=== PATIENT | male | born 1985 | race Caucasian/White ===

== ENCOUNTER → 2018-03-13 09:33 | Outpatient (CLI) | payer BC, SELFPAY ==
[2018-03-06 11:19] VITALS: BMI 24.3
--- NOTE | 2018-03-13 09:36 | RAD_ITS ---
STUDY: X-RAY - LEFT WRIST REASON FOR EXAM: Male, 33 years old. Left wrist fracture TECHNIQUE: 3 view(s) of the wrist were obtained. COMPARISON: No previous studies are available for comparison. FINDINGS: Osseous details partially obscured by cast material. There is a nondisplaced fracture of the distal radial metaphysis. The remaining osseous structures and articular surfaces of the left wrist appear within normal limits. RAD/Wrist min 3 Views IMPRESSION: Limited visualization of osseous structure. There appears to be a nondisplaced transverse fracture of the distal radial metaphysis. No significant callus or periosteal new bone formation is evident on these images. Electronically Signed: Bharathi Davis MD at 22:10 EST , Service support ,
--- OUTSIDE RECORDS SUMMARY | 2018-05-06 13:52 | XMS RPT_ITS ---
:1985 Author Organization [facility] Care Team Providers Name Role Phone Josh Monahan Attending Unavailable Corrie Jimenez Referring Unavailable Hero, Josh Attending Unavailable Hero, Josh Referring Unavailable Jimenez, Corrie Primary Care Unavailable Wayadriana, Josh Attending Unavailable Jimenez, Corrie Referring Unavailable Wayt, oJsh Attending Unavailable Jimenez, Corrie Referring Unavailable Wayt, Josh Attending Unavailable Wayt, Josh Referring Unavailable Jimenez, Corrie Primary Care Unavailable PROBLEMS PROBLEMS DATE TYPE CONDITION / CODE ATTENDING STATUS SOURCE 03/21/2018 Unknown M25.532 - Pain in Hero Josh Angulo left wrist / [facility] M25.532(ICD-10) Hospital Repository 03/13/2018 Unknown S62.102A - Josh Monahan Active [place] [facility] carpal bone, left Repository wrist, initial encounter for closed fracture / S62.102A(ICD-10) PROCEDURES PROCEDURES No Procedure Records FoundRESULTS RESULTS ORTHOPEDIC VISIT Observed: 03/29/2018 Status: F Source: [place] REPORT 9:05 AM [facility] REPOSITORY [facility] Orthopaedics AND Sports Medicine [address] [place] [address] [address] [place] [address] OFFICE VISIT Date of Service: 03/21/18 MR#: [id number] Acct: [id number] Name: YUEMAYRA Hsu Rep #: [id number] : 1985 Provider: KEISHA Monahan Age/Sex: 33/M [place] [facility] [place] [place] Status: Signed Intake Intake Visit Reasons: left wrist HPI left wrist: Details: MAYRA TURNER is a 33 year old M here today for followup from left wrist fracture. Patient is currently in a cast. Patient states he is not having any pain. He did trim the cast around his thumb area which left some rough edges. Patient had xray today. Ortho Exam Right Wrist/Hand Skin/Wound: No Swelling, No Ecchymosis Left Wrist/Hand Skin/Wound: No Swelling, No Ecchymosis Left Wrist: No ROM-Extension 0-60 or No ROM-Flexion 0-80 WRIST: Patient presents today still in a short arm cast that is clean, dry, and intact without any breakdown. There is evidence where he did cut around the thumb to allow for some more space. This did not seem to affect the integrity of the cast. There is no skin breakdown on the distal or proximal ends of the cast. He has normal sensation of the fingers and normal movement of the fingers. Assessment AND Plan Problems 1. Closed fracture of distal ends of right radius and ulna with routine healing, subsequent encounter S52.501D; S52.601D Plan Obtained Xrays of patient's right wrist. Personally reviewed Xrays. There is an evident healing fracture of the distal radius with some callus formation and no change in alignment (near anatiomic.). There is no dislocation, or lucency noted. See chart for further details. Patient is still in a cast that is clean, dry, and intact without breakdown. He has normal sensation and movement of the fingers. There is no skin abrasion or breakdown on the distal proximal portion of the cast. At this time patient is to remain in the cast and will recheck in 3 weeks. At that time we will likely remove the cast to get x-rays as well as callus is noted place him in a cockup wrist splint to begin some physical therapy to regain strength and motion. Orders Orders: Plan Detail Follow Up 3 Weeks Coding Level of Care Code Off vis,est,level 2 Diagnoses Closed fracture of distal ends of right radius and ulna with routine healing, subsequent encounter S52.501D; S52.601D Encounter type: subsequent encounter Fracture type: closed Fracture healing: with routine healing 03/29/18904 <Electronically signed by Josh Wayt PA> Date Josh VALDES Cosigner Signature: Date (if applicable) CC: WRIST MIN 3 VIEWS Observed: 03/21/2018 Status: F Source: [place] 2:07 PM [facility] REPOSITORY [facility] Imaging Services [address] [place] [address] Wrist min 3 Views MR#: [id number] Acct: [id number] Name: MAYRA TURNER Rep #: [id number] : 1985 M 33 From: Josh Faust MD PCP: Corrie Jimenez MD Status: REG CLI Study: Wrist min 3 Views Date of Exam: 03/21/18 Exam# [id number] Ordering Dr: Josh Monahan Clinical statement: Left wrist fracture COMPARISON: 03/13/2018 FINDINGS: XR Wrist Min 3 Views: 3 views of the left wrist obtained through a fiberglass cast. The cast obscures fine detail. Redemonstration of an impacted, essentially nondisplaced fracture of the distal left radius. The fracture fragments appear unchanged in position and alignment. On the AP and oblique views, the distal radial metaphysis shows subtle sclerosis and increasing density compatible with healing fracture callus. RAD/Wrist min 3 Views IMPRESSION: Casted, healing fracture of the distal left radius. No complication seen. at 0148 Reported and signed by: Josh Faust MD Electronically Signed: Josh Faust, at 1:46 EST Tel , Service support , CC: KEISHA Monahan; Corrie Jimenez MD Restaurant And Bar Manager: Signed ORTHOPEDIC VISIT Observed: 03/14/2018 Status: F Source: [place] REPORT 12:38 PM [facility] REPOSITORY [facility] Orthopaedics AND Sports Medicine [address] [facility] [address] [place] [address] OFFICE VISIT Date of Service: 03/13/18 MR#: [id number] Acct: [id number] Name: MAYRA TURNER Rep #: [id number] : 1985 Provider: KEISHA Monahan Age/Sex: 33/M Location[place] [facility] [place] [place] Status: Signed Intake Intake Visit Reasons: F/U 1 week L arm HPI F/U 1 week L arm: Details: MAYRA TURNER is a 33 year old M here today for left wrist fracture f/u. His short arm cast is in good condition though he can move the wrist inside due to swelling reduction in the last week. Denies numbness, tingling or other associated symptoms. ROS Musc Denies joint pain, Denies joint swelling, Reports limited joint movement (patient is casted) Ortho Exam Right Wrist/Hand Skin/Wound: No Swelling, No Ecchymosis Left Wrist/Hand Skin/Wound: No Swelling, No Ecchymosis Left Wrist: No ROM-Extension 0-60, No ROM-Flexion 0-80, No TTP Fracture site or No ROM-Pronation 0-80 WRIST: This patient presents in a short arm cast. Cast is clean and dry and intact without any breakdown. He has no skin changes on the distal proximal end of the cast. The cast today is actually pretty loose as he has had a lot of decrease in swelling of the wrist. He has normal movement and sensation of the fingers in the cast. Assessment AND Plan Problems 1. Closed fracture of distal ends of right radius and ulna with routine healing, subsequent encounter S52.181D; S52.673Q Plan Obtained Xrays of patient's left wrist. Personally reviewed Xrays. There is still an evident fracture within the distal radius without any evident change in alignment or position from previous x-rays. There is no dislocation, or lucency noted. See chart for further details. Patient had a lot of swelling that has gone down and therefore the cast today is pretty loose in office and therefore we are going to reapply a short arm cast for more snug fit. Recommend re-x-ray in 1 week. He is to notify of any worsening pains underneath the cast, any skin breakdown on either end of the cast, or any numbness or tingling in the fingers. Orders Orders: Plan Detail Follow Up 1 Week Coding Level of Care Code Off vis,est,level 2 Diagnoses Closed fracture of distal ends of right radius and ulna with routine healing, subsequent encounter S52.501D; S52.607F Encounter type: subsequent encounter Fracture type: closed Fracture healing: with routine healing 03/14/18 1238 <Electronically signed by Josh VALDES> Date Josh VALDES Cosigner Signature: Date (if applicable) CC: WRIST MIN 3 VIEWS Observed: 03/13/2018 Status: F Source: [place] 9:36 AM [facility] REPOSITORY [facility] Imaging Services [address] [place] [address] Wrist min 3 Views MR#: [id number] Acct: [id number] Name: MAYRA TURNER Aracelis Rep #: [id number] : 1985 33 From: Bharathi Davis MD PCP: Corrie Jimenez MD Status: REG CLI Study: Wrist min 3 Views Date of Exam: 03/13/18 Exam# [id number] Ordering Dr: Josh Monahan STUDY: X-RAY - LEFT WRIST REASON FOR EXAM: Male, 33 years old. Left wrist fracture TECHNIQUE: 3 view(s) of the wrist were obtained. COMPARISON: No previous studies are available for comparison. FINDINGS: Osseous details partially obscured by cast material. There is a nondisplaced fracture of the distal radial metaphysis. The remaining osseous structures and articular surfaces of the left wrist appear within normal limits. RAD/Wrist min 3 Views IMPRESSION: Limited visualization of osseous structure. There appears to be a nondisplaced transverse fracture of the distal radial metaphysis. No significant callus or periosteal new bone formation is evident on these images. Electronically Signed: Bharathi Davis MD at 22:10 EST , Service support , CC: KEISHA Monahan; Corrie Jimenez MD Restaurant And Bar Manager: Signed ORTHOPEDIC VISIT Observed: 03/06/2018 Status: F Source: [place] REPORT 12:48 PM [facility] REPOSITORY [facility] Orthopaedics AND Sports Medicine [address] [place] [address] OFFICE VISIT Date of Service: 03/06/18 MR#: [id number] Acct: [id number] Name: MAYRA TURNER Rep #: [id number] : 1985 Provider: KEISHA Monahan Age/Sex: 33/M Location[place] [facility] [place] Status: Signed Intake Vital Signs03/06/18 Height 5 ft 8 in 03/06/18 Weight: 160 lb 03/06/18 Body Mass Index (BMI) 24.3 Intake Visit Reasons: left wrist Is patient in pain?: Yes Pain scale (1-10): 7 HPI left wrist: Details: MAYRA TURNER is a 33 year old M here today for a fractured left wrist from a fall while hiking last week in [place]. He presents in a splint from the ED and has his xray on a disc. He also bruised his chest and states he had a negative CT scan in [place]. Today his fingers are very swollen with limited rom and he states he has been removing the splint daily. Denies numbness, tingling or other associated symptoms. ROS Musc Reports limited joint movement, Reports joint pain, Reports joint swelling, Reports stiffness, Reports as per HPI Ortho Exam Right Wrist/Hand Skin/Wound: Yes Swelling, Yes Ecchymosis Contralateral Normal: Yes Right Wrist: Yes TTP Fracture site; no ROM-Flexion 0-80, ROM- Pronation 0-80, ROM-Supination 0-90 or Snuffbox tenderness Sensation: Radial: I, Ulnar: I, Median: I Left Wrist/Hand Skin/Wound: Yes Swelling, Yes Ecchymosis Assessment AND Plan Problems 1. Closed fracture of distal ends of right radius and ulna, initial encounter S52.501A; S52.601A Plan Today we reviewed patient's x-rays that he had taken in [place]. X-rays show a right extra-articular distal radius fracture with near anatomic alignment. There is also noted a very small avulsion fracture of the distal ulna. In the office today patient has evident generalized swelling of the fingers at the same time has normal sensation and full motion of the fingers. He has some mild ecchymosis changes on the wrist area at the same time swelling here is minimal. He does have tenderness on the distal radius primarily. Very minimal tenderness on the distal ulna. We discussed the anatomy of the wrist as well as the pathophysiology of his injury. We did discuss treatment options as well. Patient states that surgery is not an option as he is not going to proceed with any surgical treatment. We discussed conservative management with casting/immobilization which she would like to go ahead and do. I discussed long-arm versus short arm casting at same time patient states that he will not have a long-arm cast stating if he does he will cut it off anyway. So after these discussions we will go ahead with cast immobilization utilizing a short arm cast. We do need to recheck this in 1 week for any movement. 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 Patient is to really try to elevate the hand and wrist and really do some finger pumps to work out some the swelling. Patient is to notify us of any worsening pains underneath the cast. Otherwise we will recheck in 1 week Plan Detail Follow Up 1 Week Coding Level of Care Code Off vis,new,level 3 Diagnoses Closed fracture of distal ends of right radius and ulna, initial encounter S52.501A; S52.601A Encounter type: initial encounter Fracture type: closed 03/06/18 1248 <Electronically signed by Josh VALDES> Date Josh VALDES Cosigner Signature: Date (if applicable) CC: ALLERGIES ALLERGIES No Allergies Records FoundENCOUNTERS ENCOUNTERS ADMIT/DISCHARGE ACCOUNT ADMITTING ENCOUNTER LOCATION SOURCE NUMBER CLASS 03/21/2018 [id number] Ambulatory [place] 3 [facility] ing:HPRAD Repository 03/21/2018/ [id number] Ambulatory BMSBuilding:B [place] [facility] 3 [facility] Repository 03/13/2018 [id number] Ambulatory [place] 1 [facility] ing:HPRAD Repository 03/13/2018/ [id number] Ambulatory BMSBuilding:B [place] 8 3 [facility] Repository 03/06/2018/ [id number] Ambulatory BMSBuilding:B [place] 8 6 [facility] Repository PAYERS PAYERS ENCOUNTER GUARANTOR PAYER SUBSCRIBER SOURCE 03/21/2018 MAYRA Hsu Primary MAYRA P [place] [id number] W Insurance:ANTHEMPolic HOLDERBAUMDOB: [facility] y Number: [id number] [facility] [id number] Repository [place], [place] Date:9050-25-77NL [address] [address]Hej: [phone], [place] [phone] ( 98777PS: 03/21/2018 Secondary NOT GIVENUNK [place] Insurance:SELF PAY [facility] Number: Effective Repository Date:2018-03-21 03/21/2018 MAYRA Hsu Primary MAYRA Hsu [place] [id number] W Insurance:ANTHEMPolic HOLDERBAUMB: [facility] y Number: [id number] [facility] [id number] Repository [place], [place] Date:1938-98-36JU [address] [address]Pyz: [phone], [place] [phone] ( [id number]: 03/21/2018 Secondary NOT GIVENUNK [place] Insurance:SELF PAY [facility] Number: Effective Repository Date:2018-03-20 03/13/2018 MAYRA P Primary MAYRA P [place] [id number] W Insurance:ANTHEMPolic HOLDERBAUMDOB: [facility] y Number: [id number] [facility] [id number] [place]ository [place] Date:4830-63-89GH [address] [address]Lxt: [phone] SPRINGS, [place] [phone] () 85601OO: 03/13/2018 Secondary NOT GIVENUNK [place] Insurance:SELF PAY [facility] Number: Effective Repository Date:2018-03-13 03/13/2018 MAYRA P Primary MAYRA P [place] [id number] W Insurance:ANTHEMPolic HOLDERBAUMDOB: [facility] y Number: [id number] [facility] [id number] Repository [place] Date:6500-38-01LV [address] [address]Mwk: [phone], [place] [phone] () 81874YB: 03/13/2018 Secondary NOT GIVENUNK [place] Insurance:SELF PAY [facility] Number: Effective Repository Date:2018-03-13 03/06/2018 MAYRA P Primary MAYRA Hsu [place] [id number] W Insurance:ANTHEMPolic HOLDERBAUMDOB: [facility] y Number: [id number] [facility] [id number] Repository [place] Date:4229-21-96NR [address] [address]Lwc: [phone], [place] [phone] () 36492AN: 03/06/2018 Secondary NOT GIVENUNK [place] Insurance:SELF PAY [facility] Number: Effective Repository Date:2018-03-06
== END ==
PROVIDERS: Family Provider Pediatrics; PCP Pediatrics; Referring Provider Physician Assistant; Visit Provider Physician Assistant
DX: S62.102A Fracture of unspecified carpal bone, left wrist, initial encounter for closed fracture (principal)
CPT/HCPCS: 73110

== ENCOUNTER → 2018-03-21 14:05 | Outpatient (CLI) | payer BC, SELFPAY ==
[2018-03-06 11:19] VITALS: BMI 24.3
--- NOTE | 2018-03-21 14:07 | RAD_ITS ---
Clinical statement: Left wrist fracture COMPARISON: 03/13/2018 FINDINGS: XR Wrist Min 3 Views: 3 views of the left wrist obtained through a fiberglass cast. The cast obscures fine detail. Redemonstration of an impacted, essentially nondisplaced fracture of the distal left radius. The fracture fragments appear unchanged in position and alignment. On the AP and oblique views, the distal radial metaphysis shows subtle sclerosis and increasing density compatible with healing fracture callus. RAD/Wrist min 3 Views IMPRESSION: Casted, healing fracture of the distal left radius. No complication seen. at 0148 Reported and signed by: Josh Faust MD Electronically Signed: Josh Faust, at 1:46 EST Tel , Service support ,
--- OUTSIDE RECORDS SUMMARY | 2018-05-07 19:06 | XMS RPT_ITS ---
:1985 Author Organization OHIP Care Team Providers Name Role Phone Josh Monahan Attending Unavailable Jimenez, Corrie Referring Unavailable Wayt, Josh Attending Unavailable Wayt, Josh Referring Unavailable Jimenez, Corrie Primary Care Unavailable Wayt, Josh Attending Unavailable Jimenez, Corrie Referring Unavailable Wayt, Josh Attending Unavailable Wayt, Josh Referring Unavailable Jimenez, Corrie Primary Care Unavailable Wayt, Josh Attending Unavailable Wayt, Josh Referring Unavailable Primay Care Physicia, No Primary Care Unavailable Wayt, Josh Attending Unavailable Primay Care Physicia, No Referring Unavailable Wayt, Josh Attending Unavailable Jimenez, Corrie Referring Unavailable Wayt, Josh Attending Unavailable Jimenez, Corrie Referring Unavailable Wayt, Josh Attending Unavailable Wayt, Josh Referring Unavailable Jimenez, Corrie Primary Care Unavailable PROBLEMS PROBLEMS DATE TYPE CONDITION / CODE ATTENDING STATUS SOURCE 04/24/2018 Unknown S52.501A - Josh Monahan Active [place] [facility] fracture of the Hospital lower end of Repository right radius, initial encounter for closed fracture / S52.501A(ICD-10) 04/24/2018 Unknown S52.601A - Josh Monahan Unspecified Community fracture of lower Hospital end of right Repository ulna, initial encounter for closed fracture / S52.601A(ICD-10) 03/21/2018 Unknown M25.532 - Pain in Josh Monahan left wrist / Community M25.532(ICD-10) Hospital Repository 03/13/2018 Unknown S62.102A - Josh Monahan Active [place] Fracture of Community unspecified Hospital carpal bone, left Repository wrist, initial encounter for closed fracture / S62.102A(ICD-10) PROCEDURES PROCEDURES No Procedure Records FoundRESULTS RESULTS ORTHOPEDIC VISIT Observed: 05/01/2018 Status: F Source: [place] REPORT 4:17 PM [facility] REPOSITORY [facility] Orthopaedics AND Sports Medicine [address] [place] [address] OFFICE VISIT Date of Service: 05/01/18 MR#: [id number] Acct: [id number] Name: MAYRA TURNER Rep #: [id number] : 1985 Provider: KEISHA Monahan Age/Sex: 33/M [place] [facility] [place]: Signed Intake Intake Visit Reasons: LEFT WRIST Is patient in pain?: No Allergies No Known Allergies Allergy (Verified 05/01/18 15:02) HPI LEFT WRIST: Details: MAYRA TURNER is a 33 year old M here today for a followup on his left wrist following cast removal. Patient is doing well and denies any pain. He has some wrist stiffness but feels it is improving. He has a wrist brace that he states he wears sometimes, although he does not have it on for his appointment today. Denies numbness, tingling or other associated symptoms. ROS Const Reports system reviewed and no additional complaints, except as docu Eyes Reports system reviewed and no additional complaints, except as docu ENT Reports system reviewed and no additional complaints, except as docu Card Reports system reviewed and no additional complaints, except as docu Resp Reports system reviewed and no additional complaints, except as docu GI Reports system reviewed and no additional complaints, except as docu Reports system reviewed and no additional complaints, except as docu Musc Reports stiffness Skin/Breast Reports system reviewed and no additional complaints, except as docu Neuro Yes system reviewed and no additional complaints, except as docu Psych Reports system reviewed and no additional complaints, except as docu Endo Reports system reviewed and no additional complaints, except as docu Ortho Exam Right Wrist/Hand Skin/Wound: No Ecchymosis, No Swelling Left Wrist/Hand Skin/Wound: Yes healed, No Ecchymosis, No Swelling Left Wrist: Yes ROM-Pronation 0-80 and Yes ROM-Supination 0-90; no ROM-Flexion 0-80 (70), no ROM-Extension 0-60 (50), no Durken's Test, no TTP Fracture site or no Snuffbox tenderness Sensation: Radial: I, Ulnar: I, Median: I WRIST: Today in the office patient shows very minimal generalized swelling at the distal radius. His range of motion has increased dramatically and he lacks maybe 10 degrees of flexion and extension only. He has no tenderness on palpation of the fracture site and he does not have any tenderness with range of motion with or without resistance. He actually has very good strength against resistance not quite 5 out of 5 but probably 4+ out of 5. Patient has normal sensation throughout the hand. Assessment AND Plan Problems 1. Closed fracture of distal ends of right radius and ulna with routine healing, subsequent encounter S52.501D; S52.453J Plan At this point patient returns the office for range of motion and strength check. He states since he has had the cast off in the past week he has been doing everything he is wanted to do without hesitation or pains. He said he has been chopping wood and doing lots of cleaning without problems. He has been driving normally stating he feels strong secure without any weakness or pains maneuvering the steering wheel. Today in the office patient was very minor swelling of the left wrist compared to the right. His range of motion shows maybe 10 degrees decrease of flexion or extension is very close to being full. His strength is also coming back great. At this point in time patient really wants to return to work without restrictions. I do have some hesitations with heavy lifting or any type of pushing or pulling heavy weights. 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 He is only able to return without restrictions and I am okay with him returning as long as the above is true. I told him I do not want him lifting anything over 15-20 pounds at this point I do not want him hanging from the wrists and I do not want him pulling or pushing over 15-20 pounds. 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 I do plan on seeing patient back in 3-4 weeks to make sure he is fully recovered and will take 1 more x-ray at that time. He can return sooner with any new injuries, increasing swelling, increasing pain or any other signs or symptoms. This note was generated with MyCareation software. It may contain incorrect words, spelling, and punctuation that were not noted in checking the note before signing. Coding Level of Care Code Off vis,est,level 2 Diagnoses Closed fracture of distal ends of right radius and ulna with routine healing, subsequent encounter S52.501D; S52.601D Encounter type: subsequent encounter Fracture type: closed Fracture healing: with routine healing 05/01/18 1617 <Electronically signed by Josh VALDES> Date Josh VALDES Cosigner Signature: Date (if applicable) CC: OT GENERAL EVALUATION Observed: 04/25/2018 Status: F Source: [place] 2:41 PM [facility] REPOSITORY [facility] Occupational Therapy [facility] [address] [place] [address]. [address] [place] [address] / REHABILITATION SERVICES INITIAL EVALUATION MR#: [id number] Acct: [id number] Name: MAYRA TURNER Rep #: [id number] : 1985 33 From: Aleena MALDONADO, LUCRETIA Referring Dr.: KEISHA Monahan Status: REG RCR Insurance: ANTHEM Eval Date: SELF PAY INSURANCE Patient's Visit Information MAYRA TURNER is a 33 year old M, referred to Occupational Therapy by KEISHA Culp, with a diagnosis of left distal radius fracture. Date of Evaluation: 04/25/18 Occupational Therapist: Aleena Hatch, MARCIAL/Mariya, BRANDIET - Subjective Subjective: This 33 year old male was seen for intial OT eval with dx of left distal radius fracture. pt states he suffered a fall and on was casted. He initially did not think his wrist was broken- He was casted 6 weeks and would like to return to PLOF- He reports pain and limited ROM is most bothersome. - Pain left 5 Pain Intensity Range: 3, 5 - ROM Forearm: right 80 left 60 supination Wrist: right 60/70 left 20/15 - Strength Filament Tester: right 130# left 45# Lateral Pinch: right 26# left 22# Tripod Pinch: right 20# left 20# - Sensation Sensation Comments: denies - Quick DASH-Disab of Arm,Shoulder AND Hand Quick DASH Score: 58.3325 - Goals Goal:: PT will demo an increase in leather splitter strength by 20# to increase independent with basic occupations of daily living to return pt to PLOF by D/C. Goal:: Pt will demo an increase in wrist ROM equal to unaffected wrist to return pt to PLOF with grooming, dressing and home mtg tasks by D/C. Goal:: Pt will report pain no greater than 1/10 with use of affected hand with BADLs and IADLs by d/c. Goal:: Pt will report ind. With BADLS and IADLs with no compensation or pain by dc - Rehabilitation General Assessment: Pt 6 weeks immobilazation following left distal radius fx. Pt demo limited left wrist ROM and weak left leather splitter and pinch strength limiting pts ind.with BADLs and IADLs. PT would benefit from skilled OT services 2-3x week for 4 weeks for therapist to provide PRE. This visitPt was ed, on PROM of wrist flex/ext and given handouts on HEP- once pt has gained more wrist ROM therapy will progress pt to PRE to return him to PLOF with BADLs and IADLS. Rehabilitation Potential: Good - Anticipated Interventions Anticipated Interventions: A/AAROM/PROM, Strengthening, Triggerpoint Release, Modalities, Orthoses - Visit Plan Frequency: 2-3x /Week Duration: 4 Weeks General Plan: initiate BTE TEXT: Thank you for the opportunity to evaluate your patient. For Medicare and Medicare HMO plans, please review the plan of care and approve it. It will need to be FAXED BACK to us at [phone] for Medicare purposes. Please let me know if there are questions or concerns regarding this plan of care. Physician Signature: Date: <Electronically signed by Aleena MALDONADO CHT> 04/25/18 1441 CC: No Primary Care Physician; KEISHA Monahan MK Signed For Medicare only, by signing this I certify the plan of care. Physicians Signature Date ORTHOPEDIC VISIT Observed: 04/24/2018 Status: F Source: [place] REPORT 4:29 PM [facility] REPOSITORY [facility] Orthopaedics AND Sports Medicine [address] [place] [address] OFFICE VISIT Date of Service: 04/24/18 MR#: [id number] Acct: [id number] Name: MAYRA TURNER Rep #: [id number] : 1985 Provider: KEISHA Monahan Age/Sex: 33/M [place] [facility] [place]: Signed Intake Vital Signs04/24/18 Body Mass Index (BMI) 24.3 Intake Visit Reasons: LEFT WRIST Is patient in pain?: No Allergies No Known Allergies Allergy (Unverified 04/24/18 15:19) HPI LEFT WRIST: Details: MAYRA TURNER is a 33 year old M here today for a followup on his left wrist. He states that he has no pain currently. Patients short arm cast is clean, dry and intact. Denies numbness, tingling or other associated symptoms. He is able to move his fingers with no pain. ROS Const Reports system reviewed and no additional complaints, except as docu Eyes Reports system reviewed and no additional complaints, except as docu ENT Reports system reviewed and no additional complaints, except as docu Card Reports system reviewed and no additional complaints, except as docu Resp Reports system reviewed and no additional complaints, except as docu GI Reports system reviewed and no additional complaints, except as docu Reports system reviewed and no additional complaints, except as docu Skin/Breast Reports system reviewed and no additional complaints, except as docu Neuro Yes system reviewed and no additional complaints, except as docu Psych Reports system reviewed and no additional complaints, except as docu Endo Reports system reviewed and no additional complaints, except as docu Ortho Exam Right Wrist/Hand Skin/Wound: No Ecchymosis, No Swelling Left Wrist/Hand Skin/Wound: No Ecchymosis, No Swelling Contralateral Normal: Yes Left Wrist: No ROM-Extension 0-60, No ROM-Flexion 0-80 or No TTP Fracture site Sensation: Radial: I, Ulnar: I, Median: I WRIST: At this time patient presents to the office in his short arm cast. Once the cast remove there is evidence sloughing of skin which is to be expected at the smae time there is no skin breakdown / open areas. There is no tenderness on palpation of the distal radius or the distal ulna at this time. He does have some decreased range, stiffness, and some discomfort with movement due to immobilization. Assessment AND Plan Problems 1. Closed fracture of distal ends of right radius and ulna with routine healing, subsequent encounter S52.501D; S52.602X Plan Obtained Xrays of patient's left wrist. Personally reviewed Xrays. There is evidence of healing fracture of the distal radius with avulsion of the distal ulna. There is no dislocation, or lucency noted. See chart for further details. At this time patient has a healing distal radius and ulna fracture post 6 weeks of immobilization. At this time patient does have evidence of healing on x-ray and he has no tenderness on palpation of the fracture site. There is evidence stiffness due to immobilization which is to be expected. At this time patient was given a prescription for occupational therapy make sure and regain full range of motion and strength of the wrist. I would like him to wear a cockup wrist splint for the next 1-2 weeks for added support and safety while he works on his range of motion and strength. He continued ice and take anti-inflammatory as needed for inflammation and pain. At this time patient states he would really like to return to work next week. 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 I did discuss that I want to make sure that patient does have his motion almost fully back and has strength enough to feel like he is able to leather splitter and hold a we will securely and do it in a quick or rapid motion. Patient understands my concern and is going to take his occupational therapy prescription down soon as he leaves our office. I would like him to return to the office in 4-6 weeks just for range of motion and strength check. Return sooner if he has any increasing pains, increased swelling or any injury. I did explain that he is at increased risk for reinjury of the wrist with a sudden or direct fall or injury to. This note was generated with UserMojo dictation software. It may contain incorrect words, spelling, and punctuation that were not noted in checking the note before signing. Orders Orders: Plan Detail Follow Up 4 Weeks Coding Level of Care Code Off vis,est,level 2 Diagnoses Closed fracture of distal ends of right radius and ulna with routine healing, subsequent encounter S52.501D; S52.601D Encounter type: subsequent encounter Fracture type: closed Fracture healing: with routine healing 04/24/18 1629 <Electronically signed by Josh VALDES> Date [facility] Signature: Date (if applicable) CC: WRIST MIN 3 VIEWS Observed: 04/24/2018 Status: F Source: [place] 3:23 PM [facility] Imaging Services [address] [place] [address] Wrist min 3 Views MR#: [id number] Acct: [id number] Name: MAYRA TURNER Rep #: [id number] : 1985 M 33 From: Tomas Hernandez MD PCP: Corrie Jimenez MD Status: REG CLI Study: Wrist min 3 Views Date of Exam: 04/24/18 Exam# [id number] Ordering Dr: Josh Monahan STUDY: X-RAY - LEFT WRIST REASON FOR EXAM: Male, 33 years old. Pain TECHNIQUE: 3 view(s) of the wrist were obtained. COMPARISON: March 21, 2018 FINDINGS: There is a band of sclerosis involving the distal end of the radius consistent with a healed or healing fracture.. A healing fracture of the ulnar styloid is also noted. The carpal bones are normal. There is mild soft tissue swelling. The fiberglass cast noted in the last examination of March 21 has been removed RAD/Wrist min 3 Views IMPRESSION: Healed or healing fractures involving the ulnar styloid and the distal radius Electronically Signed: Tomas Hernandez MD at 1:19 EST Tel , Service support , CC: KEISHA Monahan; Corrie Jimenez MD Surgeon Assistant: Signed ORTHOPEDIC VISIT Observed: 03/29/2018 Status: F Source: [place] REPORT 9:05 AM [facility] Orthopaedics AND Sports Medicine [address] [place] [address] OFFICE VISIT Date of Service: 03/21/18 MR#: [id number] Acct: [id number] Name: MAYRA TURNER Rep #: [id number] : 1985 Provider: KEISHA Monahan Age/Sex: 33/M [place] [facility] [place]: Signed Intake Intake Visit Reasons: left [...] type: closed Fracture healing: with routine healing 03/29/18 0905 <Electronically signed by Josh VALDES> Date Josh VALDES Cosigner Signature: Date (if applicable) CC: WRIST MIN 3 VIEWS Observed: 03/21/2018 Status: F Source: [place] 2:07 PM [facility] REPOSITORY [facility] Imaging Services [address] [place] [address] Wrist min 3 Views MR#: [id number] Acct: [id number] Name: MAYRA TURNER Rep #: [id number] : 1985 M 33 From: Josh Faust MD PCP: Corrie Jimenez MD Status: REG CLI Study: Wrist min 3 Views Date of Exam: 03/21/18 Exam# [id number] Ordering Dr: Josh Monahan Clinical statement: Left [...] signed by: Josh Faust MD Electronically Signed: oJsh Faust, at 1:46 EST Tel , Service support , CC: KEISHA Monahan; Corrie Jimenez MD Surgeon Assistant: Signed ORTHOPEDIC VISIT Observed: 03/14/2018 Status: F Source: [place] REPORT 12:38 PM [facility] REPOSITORY [facility] Orthopaedics AND Sports Medicine [address] [facility] [address] [place], [place] [address] OFFICE VISIT Date of Service: 03/13/18 MR#: [id number] Acct: [id number] Name: MAYRA TURNER Rep #: [id number] : 1985 Provider: KEISHA Monahan Age/Sex: 33/M [place] [facility] [place] Signed Intake Intake Visit Reasons: F/U [...] and ulna with routine healing, subsequent encounter S52.342D; S52.730T Plan Obtained Xrays of patient's left wrist. [...] ulna with routine healing, subsequent encounter S52.501D; S52.604V Encounter type: subsequent encounter Fracture type: closed Fracture healing: with routine healing 03/14/18 1238 <Electronically signed by Josh VALDES> Date Josh VALDES Cosigner Signature: Date (if applicable) CC: WRIST MIN 3 VIEWS Observed: 03/13/2018 Status: F Source: [place] 9:36 AM [facility] REPOSITORY [facility] Imaging Services [address] [place] [address] Wrist min 3 Views MR#: [id number] Acct: [id number] Name: MAYRA TURNER Rep #: [id number] : 1985 M 33 From: Bharathi Davis MD PCP: Corrie Jimenez MD Status: REG CLI Study: Wrist min 3 Views Date of Exam: 03/13/18 Exam# [id number] Ordering Dr: Josh Monahan STUDY: X-RAY - [...] , CC: KEISHA Monahan; Corrie Jimenez MD Surgeon Assistant: Signed ORTHOPEDIC VISIT Observed: 03/06/2018 Status: F Source: [place] REPORT 12:[address] [facility] Orthopaedics AND Sports Medicine [address] [place] [address] OFFICE VISIT Date of Service: 03/06/18 MR#: [id number] Acct: [id number] Name: MAYRA TURNER Rep #: [id number] : 1985 Provider: KEISHA Monahan Age/Sex: 33/M [place] [facility] Status: Signed Intake Vital Signs03/06/18 Height 5 ft 8 in 03/06/18 Weight: 160 lb 03/06/18 Body Mass Index (BMI) 24.3 Intake Visit Reasons: left wrist Is patient in pain?: Yes Pain scale (1-10): 7 HPI left wrist: Details: MAYRA TURNER is a 33 year old M here today for a fractured left wrist from a fall while hiking last week in [place]. He presents in a splint from the ED and has his xray on a disc. He also bruised his chest and states he had a negative CT scan in [place]. Today his fingers are very swollen with [...] patient's x-rays that he had taken in [place]. X-rays show a right extra-articular distal radius [...] Signature: Date (if applicable) CC: ALLERGIES ALLERGIES DATE TYPE / CODE NAME / CODE REACTION SEVERITY SOURCE 05/01/2018 Drug No Known Unknown [facility] Allergy/4160 Allergies/F00 Hospital 57528(SNOMED 3088218(RXNOR Repository CT) M) ENCOUNTERS ENCOUNTERS ADMIT/DISCHARGE ACCOUNT ADMITTING ENCOUNTER LOCATION SOURCE NUMBER CLASS 05/01/2018/ [id number] Ambulatory BMSBuilding:B [place] 9 5 [facility] Repository 04/25/2018 [id number] Ambulatory [facility] ing:OT Repository 04/24/2018 [id number] Ambulatory [place] 9 [facility] ing:HPRAD Repository 04/24/2018/ [id number] Ambulatory BMSBuilding:B [place] 9 3 [facility] Repository 03/21/2018 [id number] Ambulatory [place] 3 [facility] ing:HPRAD Repository 03/21/2018/ [id number] Ambulatory BMSBuilding:B [place] 8 3 [facility] Repository 03/13/2018 [id number] Ambulatory [address] ing:HPRAD Repository 03/13/2018/ [id number] Ambulatory BMSBuilding:B [place] 8 3 [facility] Repository 03/06/2018/ [id number] Ambulatory BMSBuilding:B [place] 8 6 [facility] Repository PAYERS PAYERS ENCOUNTER GUARANTOR PAYER SUBSCRIBER SOURCE 05/01/2018 MAYRA Hsu Primary MAYRA P [place] [id number] Insurance:ANTHEMPolic LINDYB: [facility] y Number: [id number] [id number] [place] Date:2624-10-16[address] [address]Axq: [phone], [place] [phone] (AC) 08[address]WP: 05/01/2018 Secondary NOT GIVENUNK [place] Insurance:SELF PAY [facility] Number: Effective Repository Date:2018-05-01 04/25/2018 MAYRA P Primary MAYRA P [place] [id number] Insurance:ANTHEMPolic HOLDERBAUMDOB: [facility] y Number: [id number] Affairs [facility] [id number] [place]ository [place] Date:0967-91-83[address] [address]Kbe: [phone], [place] [phone] () [address]MN: 04/25/2018 Secondary NOT GIVENUNK [place] Insurance:SELF PAY [facility] Number: Effective Repository Date:2018-04-24 04/24/2018 MAYRA P Primary MAYRA P [place] [id number] Insurance:ANTHEMPolic HOLDERBAUMDOB: [facility] y Number: [id number] Affairs Medical Center [id number] [facility] [place] Date:5174-29-14[address] [address]Lyf: [phone], [place] [phone] () 869[address]BN: 04/24/2018 Secondary NOT GIVENUNK [place] Insurance:SELF PAY [facility] Number: Effective Repository Date:2018-04-24 04/24/2018 MAYRA P Primary MAYRA P [place] [id number] Insurance:ANTHEMPolic HOLDERBAUMDOB: [facility] y Number: [id number] Affairs Medical Center [id number] Repository [place] Date:0665-96-25[address] [address]Xoq: [phone], [place] [phone] () 789[address]CV: 04/24/2018 Secondary NOT GIVENUNK [place] Insurance:SELF PAY [facility] Number: Effective Repository Date:2018-04-20 03/21/2018 MAYRA P Primary MAYRA P [place] [id number] Insurance:ANTHEMPolic HOLDERBAUMDOB: [facility] y Number: [id number] Affairs Medical Center [id number] Repository [place] Date:5866-55-74[address] [address]Ivk: [phone] [place] [phone] () [phone]: 03/21/2018 Secondary NOT GIVENUNK [place] Insurance:SELF PAY [facility] Number: Effective Repository Date:2018-03-21 03/21/2018 MAYRA P Primary MAYRA Angulo [id number] Insurance:ANTHEMPolic HOLDERBAUMDOB: [facility] y Number: [id number] Affairs Medical Center [id number] Repository [place] Date:4752-31-67PZ [address] [address]Fzr: [phone], [place] [phone] () 515[address]MH: 03/21/2018 Secondary NOT GIVENUNK [place] Insurance:SELF PAY [facility] Number: Effective Repository Date:2018-03-20 03/13/2018 MAYRA P Primary MAYRA Hsu [place] [id number] Insurance:ANTHEMPolic HOLDERBAUMDOB: [facility] y Number: [id number] Affairs Medical Center [id number] Repository [place] Date:9571-63-02KU [address] [id number]: [phone] [id number], [place] [phone] () [id number]: 03/13/2018 Secondary NOT GIVENUNK Adele Insurance:SELF PAY [facility] Number: Effective Repository Date:2018-03-13 03/13/2018 MAYRA P Primary MAYRA P Adele [id number] Insurance:ANTHEMPolic HOLDERBAUMDOB: [facility] y Number: [id number] [id number] [place]ository [place], [place] Date:[id number] [address] [address]Yet: [phone] [id number], [place] [phone] () [id number]: 03/13/2018 Secondary NOT GIVENUNK [place] Insurance:SELF PAY [facility] Number: Effective Repository Date:2018-03-13 03/06/2018 MAYRA Hsu Primary MAYRA [id number] Insurance:ANTHEMPolic HOLDERBAUMDOB: [facility] Number: [id number] Affairs [facility] [id number] Repository [place], [place] Date:[id number] [address] [address]Qyo: [phone], [place] [phone] (ZU) [id number]: 03/06/2018 Secondary NOT GIVENHOUSTON Angulo Insurance:SELF PAY [facility] Number: Effective Repository Date:2018-03-06
== END ==
PROVIDERS: Family Provider Pediatrics; PCP Pediatrics; Referring Provider Physician Assistant; Visit Provider Physician Assistant
DX: M25.532 Pain in left wrist (principal)
CPT/HCPCS: 73110

== ENCOUNTER → 2018-04-24 15:22 | Outpatient (CLI) | payer BC, SELFPAY ==
[2018-04-24 15:20] VITALS: BMI 24.3
--- NOTE | 2018-04-24 15:23 | RAD_ITS ---
STUDY: X-RAY - LEFT WRIST REASON FOR EXAM: Male, 33 years old. Pain TECHNIQUE: 3 view(s) of the wrist were obtained. COMPARISON: March 21, 2018 FINDINGS: There is a band of sclerosis involving the distal end of the radius consistent with a healed or healing fracture.. A healing fracture of the ulnar styloid is also noted. The carpal bones are normal. There is mild soft tissue swelling. The fiberglass cast noted in the last examination of March 21 has been removed RAD/Wrist min 3 Views IMPRESSION: Healed or healing fractures involving the ulnar styloid and the distal radius Electronically Signed: Tomas Hernandez MD at 1:19 EST Tel , Service support ,
== END ==
PROVIDERS: Family Provider Pediatrics; PCP Pediatrics; Referring Provider Physician Assistant; Visit Provider Physician Assistant
DX: S52.502A Unspecified fracture of the lower end of left radius, initial encounter for closed fracture (principal); S52.602A Unspecified fracture of lower end of left ulna, initial encounter for closed fracture
CPT/HCPCS: 73110

== ENCOUNTER 2018-05-04 08:00 | Outpatient (RCR) | payer BC, SELFPAY ==
[2018-04-24 15:20] VITALS: BMI 24.3
--- NOTE | 2018-04-25 13:27 | HP.OTEVAL_ITS ---
Patient's Visit Information MAYRA TURNER is a 33 year old M, referred to Occupational Therapy by KEISHA Culp, with a diagnosis of left distal radius fracture. Date of Evaluation: 04/25/18 Occupational Therapist: Aleena Hatch, MARCIAL/Mariya, CHT - Subjective Subjective: This 33 year old male was seen for intial OT eval with dx of left distal radius fracture. pt states he suffered a fall and on was casted. He initially did not think his wrist was broken- He was casted 6 weeks and would like to return to PLOF- He reports pain and limited ROM is most bothersome. - Pain left 5 Pain Intensity Range: 3, 5 - ROM Forearm: right 80 left 60 supination Wrist: right 60/70 left 20/15 - Strength Heavy Media Operator: right 130# left 45# Lateral Pinch: right 26# left 22# Tripod Pinch: right 20# left 20# - Sensation Sensation Comments: denies - Goals Goal:: PT will demo an increase in materials management clerk strength by 20# to increase independent with basic occupations of daily living to return pt to PLOF by D/C. Goal:: Pt will demo an increase in wrist ROM equal to unaffected wrist to return pt to PLOF with grooming, dressing and home mtg tasks by D/C. Goal:: Pt will report pain no greater than 1/10 with use of affected hand with BADLs and IADLs by d/c. Goal:: Pt will report ind. With BADLS and IADLs with no compensation or pain by dc - Rehabilitation General Assessment: Pt 6 weeks immobilazation following left distal radius fx. Pt demo limited left wrist ROM and weak left materials management clerk and pinch strength limiting pts ind.with BADLs and IADLs. PT would benefit from skilled OT services 2-3x week for 4 weeks for therapist to provide PRE. This visitPt was ed, on PROM of wrist flex/ext and given handouts on HEP- once pt has gained more wrist ROM therapy will progress pt to PRE to return him to PLOF with BADLs and IADLS. Rehabilitation Potential: Good - Anticipated Interventions Anticipated Interventions: A/AAROM/PROM, Strengthening, Triggerpoint Release, Modalities, Orthoses - Visit Plan Frequency: 2-3x /Week Duration: 4 Weeks General Plan: initiate BTE TEXT: Thank you for the opportunity to evaluate your patient. For Medicare and Medicare HMO plans, please review the plan of care and approve it. It will need to be FAXED BACK to us at [phone] for Medicare purposes. Please let me know if there are questions or concerns regarding this plan of care. Physician Signature: Date:
--- NOTE | 2018-04-25 13:43 | HP.OTEVAL_ITS ---
Patient's Visit Information MAYRA TURNER is a 33 year old M, referred to Occupational Therapy by KEISHA Culp, with a diagnosis of left distal radius fracture. Date of Evaluation: 04/25/18 Occupational Therapist: Aleena Hatch, MARCIAL/Mariya, CHT - Subjective Subjective: This 33 year old male was seen for intial OT eval with dx of left distal radius fracture. pt states he suffered a fall and on was casted. He initially did not think his wrist was broken- He was casted 6 weeks and would like to return to PLOF- He reports pain and limited ROM is most bothersome. 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 Goal:: Pt will demo an increase in wrist ROM equal to unaffected wrist to return pt to PLOF with grooming, dressing and home mtg tasks by D/C. Goal:: Pt will report pain no greater than 1/10 with use of affected hand with BADLs and IADLs by d/c. Goal:: Pt will report ind. With BADLS and IADLs with no compensation or pain by dc - Rehabilitation General Assessment: Pt 6 weeks immobilazation following left distal radius fx. 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 PT would benefit from skilled OT services 2-3x week for 4 weeks for therapist to provide PRE. This visitPt was ed, on PROM of wrist flex/ext and given handouts on HEP- once pt has gained more wrist ROM therapy will progress pt to PRE to return him to PLOF with BADLs and IADLS. Rehabilitation Potential: Good - Anticipated Interventions Anticipated Interventions: A/AAROM/PROM, Strengthening, Triggerpoint Release, Modalities, Orthoses - Visit Plan Frequency: 2-3x /Week Duration: 4 Weeks General Plan: initiate BTE TEXT: Thank you for the opportunity to evaluate your patient. For Medicare and Medicare HMO plans, please review the plan of care and approve it. It will need to be FAXED BACK to us at [phone] for Medicare purposes. Please let me know if there are questions or concerns regarding this plan of care. Physician Signature: Date:
--- NOTE | 2018-08-02 14:39 | HP.OT.NRP ---
HP - Discharge Summary - Patient Information MAYRA TURNER was seen in my office for initial evaluation on 04/25/18. The following Plan of Care was established for this patient: Initial Frequency: 2-3x /Week Initial Duration: 4 Weeks Plan: cont with PRE. and end range stretch - Anticipated Interventions Anticipated Interventions: A/AAROM/PROM, Strengthening, Triggerpoint Release, Modalities, Orthoses This patient was last seen in our office 05/04/18. Pertinent comments regarding their Occupational therapy will appear below: pt seen for 2 visits only. pt did not schedule further apts and is d/c at this. At this point I will be discontinuing this patient from occupational therapy. I would be happy to see this patient again in the future if found appropriate by the physician. Thank you! Aleena Hatch, OTR/L, CHT
== END 2018-05-04 19:00 | disposition home or self-care (01) ==
LOC: OT 08:00
PROVIDERS: Referring Provider Physician Assistant; Visit Provider Physician Assistant
DX: S52.502D Unspecified fracture of the lower end of left radius, subsequent encounter for closed fracture with routine healing (principal)
CPT/HCPCS: 97110; 97140; 97166

== ENCOUNTER 2020-10-27 00:05 | Emergency (ER) | payer OTHER, SELFPAY ==
[2018-04-24 15:20] VITALS: BMI 24.3
[2020-10-27 00:06] VITALS: BP 147/74; PULSE 105; RESP 18; TEMP 36.6; O2SAT 99; BMI 26.6
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
[2020-10-27 02:55] VITALS: BP 130/81; PULSE 85; RESP 16; O2SAT 99
[2020-10-27] MEDS: Ibuprofen 200 MG Tablet 800 MG PO (03:10)
[2020-10-27 04:34] VITALS: BP 132/80; PULSE 82; RESP 16; O2SAT 97
== END 2020-10-27 04:48 | disposition home or self-care (01) ==
PROVIDERS: Emergency Provider Emergency Medicine
DX: S20.219A Contusion of unspecified front wall of thorax, initial encounter (principal); S20.229A Contusion of unspecified back wall of thorax, initial encounter; V86.56XA Driver of dirt bike or motor/cross bike injured in nontraffic accident, initial encounter
CPT/HCPCS: 71250; 72125; 99283

== ENCOUNTER 2021-03-20 08:00 | Outpatient (RCR) | payer OTHER, SELFPAY ==
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
--- NOTE | 2021-02-19 16:45 | OTREVAL_ITS ---
Dr. Khanh Schwarz, DO, It has been my pleasure to treat MAYRA TURNER over the last 4 visits for left proximal displaced fx. Please see the progress note below for an update on the occupational therapy plan of care! Subjective: Pt arrived on time; states that he has no pain (unless he hits his L LF hard on something) and he has a lot of stiffness in it. pt states he feels like it hits a wall- like maybe something is in the way of his motion- states numbness does bother him as well- Objective/Function: pt continues to struggle with movement- has static progressive brace and states he is using in- therapist is providing manual mobilization- blocking, and revers blocking exercise- therapist provided adrienne splint to allow LF protection. pts finger feels tight with PROM therapist can gain 5* only. pts PIP ROM -20/30 no change in motion after 5 OT visits. therapist advised pt to continue with his HEP and to return to Dr. Plan Frequency: 1-2x /Week Duration: 6 Weeks Plan: Cont POC until pt sees for further assessment Goals - Goals Patient Goals: Regain Mobility, Regain Strength, Use Hand/Wrist/Arm Normally Again Goal:: pt will demo a increase in left director digital strategy strength to 100# or greater to return pt to his PLOF with ADLS and IADLS by d.c Goal:: pt will demo a increase in left LF PIP flex to 75* or greater to increase pts ind. with ALD and IADLs. pt will demo the ability to form a composite fits to return pt to his PLOF with ADLs and IADLS by dc Anticipated Interventions Anticipated Interventions: A/AAROM/PROM, Strengthening, Triggerpoint Release, Modalities, Orthoses, Joint Protection/Energy Conservation, Education re Diagnosis, Home Program Please do not hesitate to contact me at [phone] by phone or if you have questions or concerns regarding this new plan of care! Sincerely, Aleena Hatch, OTR/L, CHT
--- NOTE | 2021-08-21 09:39 | HP.OT.NRP ---
MAYRA TURNER was seen in my office for initial evaluation on 02/09/21. The following Plan of Care was established for this patient: Initial Frequency: 1-2x /Week Initial Duration: 6 Weeks Plan: Cont POC to gain motion Anticipated Interventions: A/AAROM/PROM, Strengthening, Triggerpoint Release, Modalities, Orthoses, Joint Protection/Energy Conservation, Education re Diagnosis, Home Program This patient was last seen in our office 03/20/21. Pertinent comments regarding their Occupational therapy will appear below: left PIP 40* flex passive 70 with blocking no increase in PIP flex pt last seen for OT session 03/20/21 the above measurements were from that time- due to time lapse in services pt d/c at this time. At this point I will be discontinuing this patient from occupational therapy. I would be happy to see this patient again in the future if found appropriate by the physician. Thank you! Aleena Hatch, OTR/L, CHT
== END 2021-03-20 19:00 | disposition home or self-care (01) ==
LOC: OT 08:00
PROVIDERS: Visit Provider Student in an Organized Health Care Education/Training Program
DX: S62.617D Displaced fracture of proximal phalanx of left little finger, subsequent encounter for fracture with routine healing (principal); X58.XXXD Exposure to other specified factors, subsequent encounter
CPT/HCPCS: 97110; 97140; 97166; 97530

== ENCOUNTER → 2023-03-14 | Outpatient (CLI) | payer OTHER, SELFPAY ==
--- NOTE | 2023-03-14 17:55 | MRI_ITS ---
STUDY: MRI LEFT SHOULDER REASON FOR EXAM: Male, 38 years old. Pain, rule out cuff tear. TECHNIQUE: Standardized fat and water weighted pulse sequences were obtained in all 3 orthogonal planes. COMPARISON: None. FINDINGS: There is minimal supraspinatus tendinosis without a full-thickness tear. Normal infraspinatus tendon. Normal subscapularis tendon. Normal teres minor tendon. Normal supraspinatus muscle. Normal infraspinatus muscle. Normal subscapularis muscle. Normal teres minor muscle. Normal glenohumeral articulation. Normal humeral head and visualized proximal humerus. Normal biceps labral complex. Normal intracapsular long biceps tendon. Normal labrum. Normal capsulo-ligamentous complex. Normal rotator interval. There is active hypertrophic acromioclavicular arthrosis with juxta-articular marrow edema and inferior osteophyte formation, with mild effacement of the supraspinatus myotendinous junction (coronal T2 series 8 images 11-15). There is a Type II morphology (curved), with a neutral orientation. There is trace subacromial-subdeltoid bursal fluid. Normal visualized coracohumeral and coracoacromial ligaments. Normal quadrilateral space. Normal axillary space. Normal deltoid muscle. Normal trapezius muscle. MRI/Upper Ext Joint Only(Routine) IMPRESSION: Minimal supraspinatus tendinosis without a full-thickness rotator cuff tear. Active hypertrophic acromioclavicular arthrosis with juxta-articular marrow edema and inferior osteophyte formation, with mild effacement of the supraspinatus myotendinous junction. Minimal subacromial-subdeltoid bursitis. Electronically Signed: Rivera Busby MD at 9:09 EST ,
== END | disposition home or self-care (01) ==
LOC: MRI 12:06
PROVIDERS: Referring Provider Orthopaedic Surgery Sports Medicine; Visit Provider Orthopaedic Surgery Sports Medicine
DX: M25.512 Pain in left shoulder (principal)
CPT/HCPCS: 73221

== ENCOUNTER 2023-05-04 08:12 | Day surgery (SDC) | payer OTHER, SELFPAY ==
[2023-05-04] MEDS: Lactated Ringers 1,000 ML 15 ML IV (08:38)
[2023-05-04 08:39] VITALS: BP 112/78; PULSE 76; RESP 18; TEMP 36.6; O2SAT 99; BMI 25.7
--- NOTE | 2023-05-04 10:11 | HP.PCM_ITS ---
HPI - General HPI Narrative MAYRA TURNER, is a 38 M who presents for left shoulder arthroscopy, subacromial decompression, distal clavicle excision. no changes to h and p. shoulder marked. rab and post op and narcotic counselling discussed. MR#: [id number] Acct: [id number] Name: MAYRA TURNER Rep #: [id number] : 1985 Provider: Dr. 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 Toby Dorantes MD 03/25/23 0922. Part of today?s visit was documented by [ ], acting as scribe. MAYRA TURNER is a 38 year old M here today for FU L shoulder MRI. Patient continues to have pain in the left shoulder mostly anterolaterally. The patient experiences worse pain with lifting. The patient did have a subacromial cortisone injection on the other side and is not interested with temporary measures. Ortho Exam General General: Yes no acute distress Neurologic: Yes alert and Yes oriented x3 Psychologic: Yes reasonable and appropriate Left Shoulder Skin/Wound: Yes CDI, No ecchymosis, No erythema and No swelling Testing: Yes Hawkin's, Yes Neer's, Yes Speed's, Yes TTP Biceps, No TTP AC Joint, Yes AROM-External Rotation at side 0-60, Yes PROM-Forward Elevation 0-180, Yes empty can, Yes [place], Yes cross arm, No scapular winging and Yes belly press normal SHOULDER: normal motor and sens to axillary N, MRU and AIN/PIN. Hand warm well perfused normal radial pulse active FE 170 painful arc. strength 4+/5 in FE and ER no pain w direct palp at ac joint Supplemental Info [facility] Imaging Services [address] [place] [address] Upper Ext Joint Only(Routine) MR#: [id number] Acct: [id number] Name: MAYRA TURNER Rep #: [id number] : 1985 M 38 From: Rivera Busby MD PCP: Care Physician,No Primary Status: DEP CLI Study: Upper Ext Joint Only(Routine) Date of Exam: 03/14/23 Exam# [id number] Ordering Dr: oTby Dorantes MD STUDY: MRI LEFT SHOULDER REASON FOR EXAM: Male, 38 years old. Pain, rule out cuff tear. TECHNIQUE: Standardized fat and water weighted pulse sequences were obtained in all 3 orthogonal planes. COMPARISON: None. FINDINGS: There is minimal supraspinatus tendinosis without a full-thickness tear. Normal infraspinatus tendon. Normal subscapularis tendon. Normal teres minor tendon. Normal supraspinatus muscle. Normal infraspinatus muscle. Normal subscapularis muscle. Normal teres minor muscle. Normal glenohumeral articulation. Normal humeral head and visualized proximal humerus. Normal biceps labral complex. Normal intracapsular long biceps tendon. Normal labrum. Normal capsulo-ligamentous complex. Normal rotator interval. There is active hypertrophic acromioclavicular arthrosis with juxta-articular marrow edema and inferior osteophyte formation, with mild effacement of the supraspinatus myotendinous junction (coronal T2 series 8 images 11-15). There is a Type II morphology (curved), with a neutral orientation. There is trace subacromial-subdeltoid bursal fluid. Normal visualized coracohumeral and coracoacromial ligaments. Normal quadrilateral space. Normal axillary space. Normal deltoid muscle. Normal trapezius muscle. MRI/Upper Ext Joint Only(Routine) IMPRESSION: Minimal supraspinatus tendinosis without a full-thickness rotator cuff tear. Active hypertrophic acromioclavicular arthrosis with juxta-articular marrow edema and inferior osteophyte formation, with mild effacement of the supraspinatus myotendinous junction. Minimal subacromial-subdeltoid bursitis. Electronically Signed: Rivera Busby MD at 9:09 EST , Coding Level of Care Code Off vis,est,level 4 Diagnoses Impingement of left shoulder M25.812 Left shoulder pain M25.512 Arthrosis of left acromioclavicular joint M19.012 Assessment and Plan Assessment and Plan (1) Impingement of left shoulder: Status: Acute Plan: 38-year-old man with a left shoulder impingement syndrome downsloping of the acromion as well as arthrosis at the AC joint and pain with cross body testing. I explained the diagnosis prognosis showed the patient the MRI images as well as explained different options with the patient doing nothing rest ice anti-infla mmatories activity modifications physical therapy cortisone injections or surgery. The patient is more interested to have a definitive solution for this problem. Surgery has its own set of risks and is no guarantee. In my hands I would be a left shoulder arthroscopy, subacromial decompression, distal clavicle excision. The patient wishes to proceed with that. They smoke an occasional cigarette but not a regular smoker with no medical problems no anticoagulation. Rare tobacco use could still increase risk of infection and other complications. Pros and cons risks and benefits were discussed with the patient including but not limited to infection, pain, stiffness, bleeding, damage to surrounding structures, neurovascular injury, recurrence or retear, failure or wear of hardware or fixation, instability, fracture, deep vein thrombosis and pulmonary embolism, anesthetic risks, , patient dissatisfaction, need for further surgery and other risks. Patient understood and wished to proceed with surgery, and signed the informed consent documentation. 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) Impingement of left shoulder Injury of head and neck Left shoulder pain Non-smoker Wears contact lenses Home Medications NK 03/25/23 [History Last Taken Unknown] Allergy/AdvReac Type Severity Reaction Status Date / Time No Known Allergies Allergy Verified 04/20/23 13:59 Surgical History (Updated 04/20/23 @ 14:09 by Phyllis Berry) Hx of appendectomy Hx of hand surgery Hx of wisdom tooth extraction Social History (Updated 03/25/23 @ 11:19 by Haydee Quarles) Smoking Status: Never smoker alcohol intake: current alcohol intake frequency: holidays/special occasions only substance use type: does not use Vital Signs Vital Signs Vital Signs: 05/04/23 08:39 05/04/23 08:39 Temperature 98 F Temperature Source Temporal Pulse Rate 76 Respiratory Rate 18 Respiratory Pattern Normal Blood Pressure 112/78 Blood Pressure Mean 89 Blood Pressure Source Monitor Blood Pressure Position Semi-Fowlers Blood Pressure Location Left Arm Pulse Ox 99 Oxygen Delivery Method Room Air Weight Weight: 169 lb Body Mass Index (BMI) 25.7
[2023-05-04] MEDS: Cefazolin 2 GM in 0.9% Normal Saline (100mL Bag) 100 ML IV (10:27)
[2023-05-04] MEDS: Epinephrine (1 mg/ml) 1 MG/ML VIAL (11:11)
--- NOTE | 2023-05-04 11:34 | OP.PCM_ITS ---
Problems Associated Problem List Diagnoses (1) Impingement of left shoulder: (2) Arthrosis of left acromioclavicular joint: Report of Operation Date of Procedure: 05/04/23 Pre-Operative Diagnosis: Left shoulder impingement syndrome and AC joint arthrosis Post-Operative Diagnosis: Same Surgery/Procedure Performed:: Left shoulder arthroscopy subacromial decompression distal clavicle excision Surgeon: Toby Dorantes Type of Anesthesia: Block,Regional and General Anesthesiologist: Carlos Enrique Carranza Estimated Blood Loss (mL): 25 Description of Procedure: Patient brought to the operating room theater. Placed supine on the table. General anesthesia induced. Block given before. 2 g IV Ancef administered prior to start of procedure. Patient transferred left side up lateral decubitus beanbag positioner. All bony prominences padded axillary roll used SCDs on the legs. Upper extremity prepped and draped in the usual sterile fashion with chlorhexidine-based prep solution allowing over 3 minutes drying time prior to draping. 10 pounds of inline traction with the arm in 35 degrees of abduction was used. Preoperative timeout performed to confirm the site patient and the surgery. Began by inserting arthroscope into the intra-articular portion of the shoulder. Did a full diagnostic arthroscopy. Cartilage on both sides was normal no loose body axillary recess was normal. Normal subscapularis as well as rotator cuff tendons. No labral tears. Slight fraying on the upper border the subscapularis. Made inside-out spinal needle localized rotator interval portal. Probed the biceps tendon this was stable and solid no synovitis or hypertrophy to the biceps. Undersurface rotator cuff was normal. I placed the arthroscope into the subacromial space. Did a bursectomy for minor amount of bursitis. Probed the superior aspect the rotator cuff tendon no tears. Did a subacromial decompression using a high-speed bur instrument to flat margins for about 4 mm. I then turned attention to the distal aspect of the clavicle. The distal clavicle excision for about 4 mm. There is some bony debris and hypertrophic bone superiorly that I removed using a grasping instrument. Examination from posterior lateral as well as anteriorly showed flat margins. Clinically was able to palpate into the AC joint and able to palpate the joint much more easily without any sort of hypertrophic bone spurring superiorly. Arthroscopic pictures taken throughout and saved onto the system. Intra- articular portion of the shoulder thoroughly irrigated. Wounds cleaned with wet and dry dressing followed by Closure with 3-0 Monocryl and application of Steri- Strips 4x4 gauze adaptic ABD dressing cloth tape and a sling. Patient woken up from general anesthetic transferred off the operating table to taken postanesthetic care unit in stable condition. All sponge needle instrument counts were correct no complications. cpt 92047 and [id number] Complications none Admit VTE Documentation VTE Present on Admission: No VTE Mechan Device Prophylaxis: SCD's VTE Pharm Prophylaxis ordered?: No Reason prophylaxis not ordered:: Treatment Not Indicated Procedures Musculoskeletal 20xxx-29xxx: Other Procedure See Report
[2023-05-04 11:43] VITALS: BP 104/74; BP 112/78; PULSE 79; RESP 16; TEMP 35.7; O2SAT 99
--- NOTE | 2023-05-04 11:43 | DCINST_ITS ---
Discharge Instructions Diet Discharge Diet: No restrictions Activity Lifting Restrictions: sling for comfort, rom as tolerated Dressing / Incision Call your doctor if your incision/area has: Continuous Slow Oozing, Sudden Increased Bleeding, Increased Pain/ Swelling, Increased Redness, Foul Smelling Discharge and Swelling at the incision site Change Dressing in: 2 days Follow Up Care Please Follow Up With: Toby Dorantes MD When: 2 weeks Test Results: Test results from this visit will be discussed in further detail at your follow- up appointment, if applicable. Discharge Plan Admission Attending Provider: Toby Dorantes Primary Care Provider: Care Physician,No Primary Instructions Patient Instructions: After Shoulder Arthroscopy Discharge Orders/Prescriptions Prescriptions: New oxycodone-acetaminophen [Endocet] 5-325 mg tablet 1 tab PO Q4H MDD 6 PRN (Reason: pain) 5 Days Qty: 20 0RF Referrals / Follow Up: Toby Dorantes MD [Med Staff - Active Staff] - Care Physician,No Primary [Primary Care Provider] - Disposition Disposition (needs filled in before D/C Order can be placed): Home, Self Care
[2023-05-04 11:46] VITALS: BP 108/71; BP 112/78; PULSE 80; RESP 16; TEMP 35.9; O2SAT 99
[2023-05-04 11:50] VITALS: BP 106/77; BP 112/78; PULSE 78; RESP 16; TEMP 35.9; O2SAT 100
[2023-05-04 11:55] VITALS: BP 110/72; BP 112/78; PULSE 73; RESP 16; TEMP 36.1; O2SAT 76
[2023-05-04 12:00] VITALS: BP 110/84; BP 112/78; PULSE 77; RESP 16; TEMP 36.1; O2SAT 98
== END 2023-05-04 12:34 | disposition home or self-care (01) ==
LOC: SDC 08:17 → AC 08:17
PROVIDERS: Referring Provider Orthopaedic Surgery Sports Medicine; Visit Provider Orthopaedic Surgery Sports Medicine
PROC: (CPT 29805; principal; 2023-05-04 09:50)
DX: M75.42 Impingement syndrome of left shoulder (principal); M19.012 Primary osteoarthritis, left shoulder
CPT/HCPCS: 29826; 29824; 64415; J7120; J2405